=== PATIENT | female | born 1990 | race Caucasian/White ===

== ENCOUNTER 2023-07-24 10:20 | Emergency (ER) | payer OTHER, SELFPAY ==
[2023-07-24 10:32] VITALS: BP 135/97
--- NOTE | 2023-07-24 11:14 | ED.GENMED ---
History of Present Illness
General
Chief Complaint: Back Pain
Source: patient
Exam Limitations: none
Time Seen by Provider: 07/24/23 11:00
Nursing documentation reviewed up to this point in time: agreed with
Travel History
Have you had any contact with someone who has COVID-19?: No
Do you have any symptoms of coronavirus? Fever > 100 degrees, chills, cough, shortness of breath, sore throat, loss of taste or smell, muscle aches, or headache?: No
History of Present Illness
History of Present Illness:
Patient is a 33 year old female with history kidney stones presenting for evaluation of left sided back pain with associated nausea. Symptoms were acute onset and have been present for 2 days. She reports a constant pain in her left back with
radiation to her abdomen and nausea. She does state there is a sharp pain in her left flank that comes and goes. She has had a low-grade temp at home of 99.5 and some chills. She denies any dysuria or hematuria. She denies any vomiting,
diarrhea, constipation. She does report a very low appetite over the past few days. She denies any exacerbating relieving factors of pain. No known association with food.
Patient does have a history of kidney stones. Her most recent kidney stone was about 8 years ago. The stones involvement on the left side and she has required a stent 1 time. She follows with a urologist at [place] in the [facility]. Patient tried
Aleve for the pain which did not lead to much improvement.
LMP was 2 weeks ago.
Past History
Past History
ED Past Medical History: Psychiatric (anxiety)
ED Past Surgical History: Urological (right stone removal 3 yeras ago)
Social History
Tobacco: Non-smoker
Alcohol: Occasional
Personal: Single
Living: with roommate
Phy Exam
Physical Exam
Physical Exam:
General: In no apparent distress and non-toxic
Vitals: Patient is mildly hypertensive, otherwise vital signs stable; afebrile
HEENT: Atraumatic, normocephalic; pupils equal round reactive light bilaterally, protecting airway
Neck: appears supple; no midline spinal tenderness
CV: Regular rate and rhythm, heart sounds normal, no evidence of cyanosis
Resp: Lungs clear bilaterally, no evidence of respiratory distress
Abd: Soft, nontender to palpation without rebound or guarding, non-distended; no CVA tenderness; no reproducible or flank pain
Extremities: No deformities no evidence of cyanosis or edema
Neuro: alert and oriented x 3; grossly intact
Psych: Normal affect
Skin: Intact, no rashes
Course
Orders/Labs/Results
Orders:
Orders
07/24/23 11:14
0.9% Sodium Chloride 1000 ml [Nss] 1,000 ml IV BOLUS
Ketorolac [Toradol] 15 mg IV NOW STA
Ondansetron Injectable [Zofran] 4 mg IV NOW STA
07/24/23 11:15
Ketorolac [Toradol] 15 mg .ROUTE .STK-MED ONE
Ondansetron Injectable [Zofran] 4 mg .ROUTE .STK-MED ONE
Test Result ONCE
07/24/23 11:17
CT Abd/pel Without Iv Or Oral Urgent
Comment:
Reason For Exam: left flank pain, hx kidney stones
07/24/23 11:25
Complete Blood Count/With Diff Urgent
Comprehensive Metabolic Panel Urgent
HCG, Serum Qualitative Screen Urgent
Lipase Urgent
Urinalysis Reflex To Culture Urgent
Date Specimen was Collected: 07/24/23
Time Specimen was Collected: 11:13
Urine Microscopic Reflex Cult Urgent
Urine Culture Urgent
MARIANA Source: U
Specimen Description:
Date Specimen was Collected: 07/24/23
Time Specimen was Collected: 11:13
07/24/23 12:46
Oxycodone/Acetaminophen [Percocet 5/325] 1 tablet PO NOW STA
Abnormal Lab Results
07/24/23
11:25
MCH 31.6 H pg
(27.0-31.0)
Monocytes % 9.8 H %
(1.7-9.3)
Total Protein 8.6 H g/dl
(6.3-8.2)
Albumin 5.5 H g/dl
(3.5-5.0)
Leukocyte Esterase Rfl 1+ A
(Negative)
07/24/23 11:25
07/24/23 11:25
Vital Signs
Initial and Last Documented VS:
Initial Vital Signs
Temp Pulse Resp BP Pulse Ox
98.7 F 75 18 135/97 100
07/24/23 10:32 07/24/23 10:32 07/24/23 10:32 07/24/23 10:32 07/24/23 10:32
Last Documented Vital Signs
Temp Pulse Resp BP Pulse Ox
98.7 F 74 18 129/81 100
07/24/23 10:32 07/24/23 12:15 07/24/23 12:15 07/24/23 12:15 07/24/23 12:15
MDM/Problems Addressed
Differential Diagnosis Includes:
Kidney stones, pyelonephritis, UTI, diverticulitis, pancreatitis,
MDM/Problems Addressed:
Patient is a 33 year old female with history kidney stones presenting with left sided flank pain for 2 days with associated nausea. No fever, chills, or urinary symptoms. Patient has a history of kidney stones on the left side requiring a stent in
the past. She believes these symptoms are very similar to kidney stones in the past. Vital signs stable, afebrile. Physical exam as documented above. She is in no acute distress. Will get basic labs, UA. Will check CT. IVF, zofran, and toradol for
pain. Will reassess.
On reassessment - patient still in moderate amount of pain. She has been able to tolerate PO - will give Percocet.
CBC and CMP without any clinically significant abnormalities. No signs of renal insufficiency. HCG negative. UA without signs of infection. CT pending. Patients pain improved following toradol.
CT shows no evidence of kidney stones but did show a 12mm likely hemorrhagic cyst in left midpole renal pelvis. Unsure if this would contribute to patients symptoms. Discussed with urologist quality control lab technician who mentions possibility of contribution of
symptoms if recent bleeding but not entirely certain. Discussed with patient - who was previously aware of cyst in kidney.
Additionally - an incidental finding of a nonspecific mild pericardial effusion was noted. Patient without any chest pain or shortness of breath. Made patient aware of this finding- she will follow-up with primary care/cardiology. Return
precautions discussed.
Pain is controlled and patient remains stable. Workup negative. She is stable for discharge with urology follow-up. Will provide pain control and zofran for a few days. Return precautions discussed. Patient comfortable with this plan. All questions
answered.
Chronic conditions affecting care:
Kidney stones
Acute Exacerbation and/or Progression of Chronic Illness:
N/A
*Radiology
Radiology exam reviewed: preliminary read by ED provider and radiology read reviewed
*Pulse Oximetry
Patient hypoxic: no
*Cad Manager Interpretation
Rate: Cad Manager- N/A
*Critical Care Note
Total Time (30-74mins, 75-104mins- exclusive of procedures): Not Applicable
Data Reviewed
Review of Other/Old Records Reveals: Labs, Records and Radiology Studies
Patient Management
Discussion with other providers: Packager Or Packer And Weigher (urologist)
ED Attending Note
-
Portions of this chart may have been created with voice recognition software.� Occasional wrong word or��sound alike� substitutions may have occurred due to the inherent limitations of voice recognition software.
Discharge Plan
Departure
Patient Disposition: Home (Routine Discharge)
Date of Disposition: 07/24/23
Time of Disposition: 14:39
Patient with high blood pressure during this ER visit?: No
Condition: Good
Covid-19: Not Applicable
Discharge Problem:
Acute flank pain
Instructions: Flank Pain (DC)
Prescriptions:
New
oxycodone-acetaminophen [Percocet] 5-325 mg tablet
1 tab PO Q8H PRN (Reason: Pain) Qty: 5 0RF
ondansetron 4 mg tablet,disintegrating
4 mg PO TIDPRN PRN (Reason: nausea/vomiting) Qty: 7 0RF
No Action
alprazolam 0.25 MG tablet
0.25 mg PO TID
citalopram 20 MG tablet
30 mg PO DAILY
Referrals:
Jeison Jo MD [Family Provider] - Call in 1-3 days for appt
Activity Restrictions/Additional Instructions:
- Return to the emergency department with any high fevers, chest pain, shortness of breath, severe abdominal pain, intractable nausea and/or vomiting, worsening of current symptoms, or any other concerns
-You can take Advil/Tylenol as needed for discomfort. For severe discomfort you can take that this has been sent to your pharmacy. A prescription for Zofran has been sent to your pharmacy, as well. You can take this every 8 hours as needed for
severe nausea
-It is important to stay well-hydrated
-As discussed�you should follow-up with your urologist as soon as you can for further evaluation/treatment of pain
-As discussed�there was a small amount of fluid seen around your heart on CAT scan today. You should follow-up with your primary care provider in the next few days for further evaluation and possible echo of your heart. If you develop any chest
pain, shortness of breath, high fevers return to the emergency department
Interventions
Interventions:
*Risk Screen - Suicide Last Done: 07/24/23 11:16
*General Assessment Last Done: 07/24/23 11:16
*Neglect/Abuse Screening Last Done: 07/24/23 11:16
ED- Fall Risk Assessment Last Done: 07/24/23 11:17
*ED COVID-19 Vaccine History Last Done: 07/24/23 10:39
*Nursing Disposition Last Done: 07/24/23 14:53
ED-Musculoskeletal Assessment Last Done: 07/24/23 11:16
Discharge Date and Time
Discharge Date/Time: 07/24/23 14:53
[2023-07-24] MEDS: ZOFRAN 4 MG IV (11:21)
[2023-07-24] MEDS: TORADOL 15 MG IV (11:21)
[2023-07-24] MEDS: NSS 1000 IV (11:22)
[2023-07-24 11:35] LABS: % Basophils 0.8 % (0-2); % Eosinophils 1.3 % (0-6); % Immature Granulocytes 0.2 % (0-0.5); % Lymphocytes 31.8 % (20.5-51.1); % Monocytes 9.8 % (1.7-9.3); % Neutrophils 56.1 % (42.2-75.2); Absolute Basophils 0.1 10^3/uL (0-0.2); Absolute Eosinophils 0.1 10^3/uL (0-0.7); Absolute Lymphocytes 1.9 10^3/uL (1.2-3.4); Absolute Monocytes 0.6 10^3/uL (0.1-0.6); Absolute Neutrophils 3.3 10^3/uL (1.4-6.5); Hematocrit 41.2 % (37.0-47.0); Hemoglobin 14.2 g/dL (12.0-16.0); Mean Corp Hgb Conc. 34.5 g/dL (33.0-37.0); Mean Corpuscular Hgb 31.6 pg (27.0-31.0); Mean Corpuscular Volume 91.6 fL (81.0-99.0); Mean Platelet Volume 8.8 fL (7.4-10.4); Nucleated Red Blood Cells % 0 %; Platelet Count 236 10^3/uL (130-400); Red Cell Dist. Width 12.4 % (11.5-14.5); White Blood Cell Count 5.9 10^3/uL (4.8-10.8)
[2023-07-24 11:47] LABS: HCG, Serum Qualitative Screen Negative; Urine Albumin Negative (Neg - Trace); Urine Bilirubin Negative (Negative); Urine Character Clear (Clear); Urine Color Yellow; Urine Glucose Negative (Negative); Urine Ketone Negative (Negative); Urine Leukocyte 1+ (Negative); Urine Nitrite Negative (Negative); Urine Occult Blood Negative (Negative); Urine Specific Gravity 1.005 (<1.030); Urine Urobilinogen Negative (Neg - 1+)
[2023-07-24 11:49] LABS: ALT (SGPT) 27 U/L (0-35); AST (SGOT) 33 U/L (14-36); Albumin 5.5 g/dl (3.5-5.0); Alkaline Phosphatase 53 U/L (38-126); Blood Urea Nitrogen 9 mg/dl (7-17); Calcium 10.1 mg/dl (8.4-10.2); Carbon Dioxide 28 mmol/L (22-30); Chloride 98 mmol/L (98-107); Glucose 89 mg/dl (70-99); Lipase 64 U/L (23-300); Potassium 4.1 mmol/L (3.5-5.1); Sodium 135 mmol/L (135-145); Total Bilirubin 0.5 mg/dl (0.2-1.3); Total Protein 8.6 g/dl (6.3-8.2); eGFR > 60.00
[2023-07-24 12:03] LABS: Urine Squamous Cell >30 /LPF (Few)
[2023-07-24 12:04] LABS: Urine Red Blood Cell 0-2 /HPF (0-2)
[2023-07-24 12:15] VITALS: BP 129/81
[2023-07-24] MEDS: PERCOCET 5/325 1 TABLET PO (12:49)
== END 2023-07-24 14:53 | disposition home or self-care (01) ==
LOC: EMR 10:20
PROVIDERS: Physician Assistant; EMERGENCY PHYSICIAN Emergency Medicine; FAMILY PHYSICIAN Internal Medicine
DX: R10.9 Unspecified abdominal pain (principal); F41.9 Anxiety disorder, unspecified; Z87.442 Personal history of urinary calculi
CPT/HCPCS: 99284; 96374; 96375; 96361; 74176; 80053; 81003; 81015; 83690; 84703; 85025; 87086

== ENCOUNTER → 2023-08-21 19:56 | Outpatient (REF) | payer OTHER, SELFPAY | LOC: MRI 19:56 | PROVIDERS: ATTENDING PHYSICIAN Specialist; FAMILY PHYSICIAN Internal Medicine | DX: Q61.01 Congenital single renal cyst (principal) | CPT/HCPCS: 74183; A9575 ==

== ENCOUNTER → 2023-08-26 10:02 | Outpatient (REF) | payer OTHER, SELFPAY | LOC: HWRCS 10:02 | PROVIDERS: ATTENDING PHYSICIAN Internal Medicine | DX: I31.39 Other pericardial effusion (noninflammatory) (principal) | CPT/HCPCS: 93306 ==